=== PATIENT | male | born 1960 | race Caucasian/White ===

== ENCOUNTER 2017-08-14 00:19 | Inpatient (IN) | payer OTHER ==
[2017-08-14] MEDS ORDERED: ONDANSETRON 4 MG INJ IV (01:30)
[2017-08-14] MEDS ORDERED: BISACODYL (EC) 5 MG TAB PO (01:30)
[2017-08-14] MEDS ORDERED: DOCUSATE SODIUM 100 MG CAP PO (01:30)
[2017-08-14] MEDS ORDERED: NACL 0.9% 3 ML SYG IV (01:30)
[2017-08-14] MEDS ORDERED: ACETAMINOPHEN 325 MG TAB PO (01:30)
[2017-08-14 02:47] LABS: ADD MAN DIFF? NO
[2017-08-14 02:53] LABS: WHITE BLOOD COUNT 10.3 10^3/ul (4.8-10.8)
[2017-08-14 02:53] LABS: BASOPHIL # 0.1 10^3/ul (0.0-0.1); BASOPHILS % 0.7 % (0.0-2.0); EOSINOPHILS # 0.4 10^3/ul (0.0-0.5); EOSINOPHILS % 3.5 % (0.0-7.0); HEMATOCRIT 49.2 % (42.0-52.0); HEMOGLOBIN 15.3 g/dl (14.0-18.0); LYMPHOCYTES # 0.7 10^3/ul (0.8-2.9); LYMPHOCYTES % 6.5 % (15.0-51.0); MEAN CORPUSCULAR HEMOGLOBIN 29.4 pg (29.0-33.0); MEAN CORPUSCULAR HGB CONC 31.1 g/dl (32.0-37.0); MEAN CORPUSCULAR VOLUME 94.4 fl (82.0-101.0); MEAN PLATELET VOLUME 9.5 fl (7.4-10.4); MONOCYTE # 1.2 10^3/ul (0.3-0.9); MONOCYTES % 11.7 % (0.0-11.0); NEUTROPHIL # 7.9 10^3/ul (1.6-7.5); NEUTROPHILS % 76.5 % (39.0-77.0); PLATELET COUNT 285 10^3/UL (140-415); RED BLOOD COUNT 5.21 10^6/ul (4.70-6.10); RED CELL DISTRIBUTION WIDTH 14.6 % (11.5-14.5)
[2017-08-14] MEDS: VANCOMYCIN 1 GM (PMX) 250 ML IVPB (02:55)
[2017-08-14] MEDS: HYDROCODONE/APAP (5/325) TAB PO ×5 (02:56→23:32)
[2017-08-14 03:04] LABS: HEMOGLOBIN A1C 8.5 % (0-5.9)
[2017-08-14 03:22] LABS: LACTIC ACID 0.8 mmol/L (0.5-2.0)
[2017-08-14 03:23] LABS: ALANINE AMINOTRANSFERASE 31 IU/L (13-69); ALBUMIN 2.1 g/dl (3.3-4.9); ALBUMIN/GLOBULIN RATIO 0.77; ALKALINE PHOSPHATASE 262 IU/L (42-121); ANION GAP 9 (8-16); ASPARTATE AMINO TRANSFERASE 28 IU/L (15-46); BILIRUBIN,INDIRECT 0.3 mg/dl (0-1.1); BILIRUBIN,TOTAL 0.3 mg/dl (0.2-1.3); BLOOD UREA NITROGEN 23 mg/dl (7-20); CALCIUM 7.2 mg/dl (8.4-10.2); CARBON DIOXIDE 31 mmol/L (21-31); CHLORIDE 101 mmol/L (97-110); CHOL/HDL RATIO 5.5 RATIO; CHOLESTEROL 94 mg/dl (100-200); CREATININE 1.03 mg/dl (0.61-1.24); GLUCOSE 141 mg/dl (70-220); HDL CHOLESTEROL 17 mg/dl (30-78); LDL CHOLESTEROL,CALCULATED 52 mg/dl; MAGNESIUM 1.8 mg/dl (1.7-2.5); POTASSIUM 4.4 mmol/L (3.5-5.1); SODIUM 137 mmol/L (135-144); TOTAL PROTEIN 4.8 g/dl (6.1-8.1); TRIGLYCERIDES 123 mg/dl (0-149)
[2017-08-14 03:41] LABS: C-REACTIVE PROTEIN 8.8 mg/dl (0.0-0.9)
[2017-08-14] MEDS ORDERED: DEXTROSE 50% 50 ML SYRINGE IV ×2 (04:00)
[2017-08-14] MEDS ORDERED: GLUCAGON 1 MG INJ IM (04:00)
[2017-08-14] MEDS ORDERED: GLUCOSE GEL 15 GRAM TUBE PO ×2 (04:00)
[2017-08-14] MEDS ORDERED: GLUCOSE GEL 15 GRAM TUBE BUCCAL (04:00)
[2017-08-14 04:24] LABS: ERYTHROCYTE SEDIMENTATION RATE 32 mm/Hr (0-20)
[2017-08-14] MEDS ORDERED: VANCOMYCIN IV PER PHARMACY XX (06:30)
[2017-08-14] MEDS: PIPER-TAZO 3.375 GM IV (PMX) 100 ML IVPB ×3 (07:03→21:10)
[2017-08-14] MEDS: BUMETANIDE 1 MG INJ IV ×2 (07:03→17:34)
[2017-08-14 07:28] LABS: ADD MAN DIFF? NO
[2017-08-14 07:30] LABS: WHITE BLOOD COUNT 10.9 10^3/ul (4.8-10.8)
[2017-08-14 07:30] LABS: BASOPHIL # 0.1 10^3/ul (0.0-0.1); BASOPHILS % 0.5 % (0.0-2.0); EOSINOPHILS # 0.4 10^3/ul (0.0-0.5); EOSINOPHILS % 3.8 % (0.0-7.0); HEMATOCRIT 46.7 % (42.0-52.0); HEMOGLOBIN 14.9 g/dl (14.0-18.0); LYMPHOCYTES # 0.7 10^3/ul (0.8-2.9); LYMPHOCYTES % 6.2 % (15.0-51.0); MEAN CORPUSCULAR HEMOGLOBIN 29.8 pg (29.0-33.0); MEAN CORPUSCULAR HGB CONC 31.9 g/dl (32.0-37.0); MEAN CORPUSCULAR VOLUME 93.4 fl (82.0-101.0); MEAN PLATELET VOLUME 9.7 fl (7.4-10.4); MONOCYTE # 1.2 10^3/ul (0.3-0.9); MONOCYTES % 11.2 % (0.0-11.0); NEUTROPHIL # 8.4 10^3/ul (1.6-7.5); NEUTROPHILS % 77.2 % (39.0-77.0); PLATELET COUNT 274 10^3/UL (140-415)
[2017-08-14] MEDS: ASPIRIN 81 MG TAB PO (08:15)
[2017-08-14] MEDS: SPIRONOLACTONE 25 MG TAB PO (08:15)
[2017-08-14] MEDS: INSULIN ASPART [NOVOLOG] 3 ML PEN SC ×4 (08:16→21:15)
[2017-08-14] MEDS ORDERED: ENOXAPARIN 40 MG/0.4 ML SYG SC (09:00)
[2017-08-14 10:24] LABS: DIGOXIN 0.5 ng/ml (1.0-2.0)
[2017-08-14] MEDS: VANCOMYCIN 1.5 GM in SOD CHLORIDE 0.9% 250 ML IVPB ×2 (11:53→23:24)
[2017-08-14] MEDS: DIGOXIN 0.25 MG TAB PO (13:01)
[2017-08-14] MEDS: SOD CHLORIDE 0.9% 100 ML (15:44)
[2017-08-14] MEDS: IODIXANOL LOCM 100 ML BTL (15:44)
[2017-08-14] MEDS: RIVAROXABAN 20 MG TABLET PO (17:40)
[2017-08-15] MEDS: ACCU-CHEK XX (02:11)
[2017-08-15] MEDS ORDERED: PENDING SANTYL ORDER FOR WOUND CARE XX (05:00)
[2017-08-15] MEDS: BUMETANIDE 1 MG INJ IV ×2 (05:45→17:13)
[2017-08-15] MEDS: HYDROCODONE/APAP (5/325) TAB PO ×2 (05:45→15:07)
[2017-08-15] MEDS: PIPER-TAZO 3.375 GM IV (PMX) 100 ML IVPB ×3 (05:45→22:19)
[2017-08-15 06:55] LABS: ADD MAN DIFF? NO
[2017-08-15 07:00] LABS: BASOPHIL # 0.1 10^3/ul (0.0-0.1); BASOPHILS % 0.5 % (0.0-2.0); EOSINOPHILS # 0.4 10^3/ul (0.0-0.5); EOSINOPHILS % 3.4 % (0.0-7.0); HEMATOCRIT 47.8 % (42.0-52.0); LYMPHOCYTES # 0.8 10^3/ul (0.8-2.9); LYMPHOCYTES % 6.7 % (15.0-51.0); MEAN CORPUSCULAR HEMOGLOBIN 29.4 pg (29.0-33.0); MEAN CORPUSCULAR HGB CONC 31.4 g/dl (32.0-37.0); MEAN CORPUSCULAR VOLUME 93.5 fl (82.0-101.0); MEAN PLATELET VOLUME 9.5 fl (7.4-10.4); MONOCYTE # 1.2 10^3/ul (0.3-0.9); MONOCYTES % 9.9 % (0.0-11.0); NEUTROPHIL # 9.6 10^3/ul (1.6-7.5); NEUTROPHILS % 78.5 % (39.0-77.0); PLATELET COUNT 299 10^3/UL (140-415); RED BLOOD COUNT 5.11 10^6/ul (4.70-6.10); RED CELL DISTRIBUTION WIDTH 14.6 % (11.5-14.5)
[2017-08-15 07:00] LABS: WHITE BLOOD COUNT 12.3 10^3/ul (4.8-10.8)
[2017-08-15 07:25] LABS: CREATINE KINASE 40 IU/L (23-200)
[2017-08-15 07:27] LABS: ANION GAP 13 (8-16); BLOOD UREA NITROGEN 22 mg/dl (7-20); CALCIUM 6.9 mg/dl (8.4-10.2); CARBON DIOXIDE 29 mmol/L (21-31); CHLORIDE 98 mmol/L (97-110); CREATININE 0.81 mg/dl (0.61-1.24); GLUCOSE 155 mg/dl (70-220); POTASSIUM 4.6 mmol/L (3.5-5.1); SODIUM 135 mmol/L (135-144)
[2017-08-15 07:27] LABS: DIGOXIN 0.8 ng/ml (1.0-2.0)
[2017-08-15 07:35] LABS: B-TYPE NATRIURETIC PEPTIDE 1330 PG/ML (0-125); CHOL/HDL RATIO 5.8 RATIO; HDL CHOLESTEROL 17 mg/dl (30-78); LDL CHOLESTEROL,CALCULATED 54 mg/dl; TRIGLYCERIDES 142 mg/dl (0-149)
[2017-08-15 07:35] LABS: CHOLESTEROL 99 mg/dl (100-200)
[2017-08-15 07:37] LABS: CK INDEX 9.4
[2017-08-15 07:38] LABS: CK-MB 3.74 ng/ml (0.0-2.4)
[2017-08-15 07:40] LABS: TROPONIN-I 0.147 ng/ml (0.000-0.120)
[2017-08-15] MEDS: ASPIRIN 81 MG TAB PO (08:18)
[2017-08-15] MEDS: SPIRONOLACTONE 25 MG TAB PO (08:18)
[2017-08-15] MEDS: INSULIN ASPART [NOVOLOG] 3 ML PEN SC ×4 (08:27→20:17)
[2017-08-15] MEDS ORDERED: ENOXAPARIN 100 MG/ML SYG SC (09:00)
[2017-08-15] MEDS: VANCOMYCIN 1.5 GM in SOD CHLORIDE 0.9% 250 ML IVPB ×2 (12:11→23:56)
[2017-08-15] MEDS: DIGOXIN 0.25 MG TAB PO (12:13)
[2017-08-15] MEDS ORDERED: OXYCODONE/ACETAMINOPHEN (10/325) TAB PO (17:00)
[2017-08-15] MEDS: RIVAROXABAN 20 MG TABLET PO (17:13)
[2017-08-15] MEDS: OXYCODONE/ACETAMINOPHEN (5/325) TAB PO (20:11)
[2017-08-15] MEDS: MAGNESIUM OXIDE 400 MG TAB PO (20:11)
[2017-08-15 22:37] LABS: VANCOMYCIN,TROUGH 16.5 ug/ml (10.0-20.0)
[2017-08-16] MEDS: OXYCODONE/ACETAMINOPHEN (5/325) TAB PO ×3 (00:59→11:48)
[2017-08-16] MEDS: BUMETANIDE 1 MG INJ IV (05:36)
[2017-08-16] MEDS: PIPER-TAZO 3.375 GM IV (PMX) 100 ML IVPB (05:36)
[2017-08-16] MEDS: ASPIRIN 81 MG TAB PO (08:11)
[2017-08-16] MEDS: INSULIN ASPART [NOVOLOG] 3 ML PEN SC (08:11)
[2017-08-16] MEDS: SPIRONOLACTONE 25 MG TAB PO (08:12)
[2017-08-16 09:02] LABS: ADD MAN DIFF? NO
[2017-08-16 09:16] LABS: WHITE BLOOD COUNT 11.3 10^3/ul (4.8-10.8)
[2017-08-16 09:16] LABS: BASOPHIL # 0.1 10^3/ul (0.0-0.1); BASOPHILS % 0.5 % (0.0-2.0); EOSINOPHILS # 0.4 10^3/ul (0.0-0.5); EOSINOPHILS % 3.5 % (0.0-7.0); HEMATOCRIT 46.7 % (42.0-52.0); LYMPHOCYTES # 0.8 10^3/ul (0.8-2.9); LYMPHOCYTES % 7.4 % (15.0-51.0); MEAN CORPUSCULAR HEMOGLOBIN 29.8 pg (29.0-33.0); MEAN CORPUSCULAR HGB CONC 32.1 g/dl (32.0-37.0); MEAN CORPUSCULAR VOLUME 92.7 fl (82.0-101.0); MEAN PLATELET VOLUME 9.6 fl (7.4-10.4); MONOCYTE # 1.1 10^3/ul (0.3-0.9); MONOCYTES % 9.9 % (0.0-11.0); NEUTROPHIL # 8.8 10^3/ul (1.6-7.5); NEUTROPHILS % 77.8 % (39.0-77.0); PLATELET COUNT 339 10^3/UL (140-415); RED BLOOD COUNT 5.04 10^6/ul (4.70-6.10); RED CELL DISTRIBUTION WIDTH 14.6 % (11.5-14.5)
[2017-08-16 09:35] LABS: ANION GAP 12 (8-16); BLOOD UREA NITROGEN 18 mg/dl (7-20); CALCIUM 7.5 mg/dl (8.4-10.2); CARBON DIOXIDE 29 mmol/L (21-31); CHLORIDE 97 mmol/L (97-110); CREATININE 0.85 mg/dl (0.61-1.24); GLUCOSE 144 mg/dl (70-220); POTASSIUM 4.2 mmol/L (3.5-5.1); SODIUM 134 mmol/L (135-144)
[2017-08-16 09:50] LABS: MAGNESIUM 1.7 mg/dl (1.7-2.5)
[2017-08-16] MEDS: VANCOMYCIN 1 GM 250 ML IVPB (11:48)
== END 2017-08-16 12:38 | disposition left against medical advice (07) | DRG 291 ==
LOC: MS4 00:19
PROVIDERS: Internal Medicine
DX: I11.0 Hypertensive heart disease with heart failure (principal); J96.00 Acute respiratory failure, unspecified whether with hypoxia or hypercapnia; L03.115 Cellulitis of right lower limb; I47.2 Ventricular tachycardia; I50.41 Acute combined systolic (congestive) and diastolic (congestive) heart failure; I42.9 Cardiomyopathy, unspecified; I48.2 Chronic atrial fibrillation; K42.9 Umbilical hernia without obstruction or gangrene; I87.2 Venous insufficiency (chronic) (peripheral); E11.9 Type 2 diabetes mellitus without complications; Z86.73 Personal history of transient ischemic attack (TIA), and cerebral infarction without residual deficits; Z86.711 Personal history of pulmonary embolism; Z79.4 Long term (current) use of insulin; Z87.891 Personal history of nicotine dependence
CPT/HCPCS: 71045; 71275; 80048; 80053; 80061; 80162; 80202; 82550; 82553; 82962; 83036; 83605; 83735; 83880; 84443; 84484; 85025; 85651; 86140; 93005; 93306

== ENCOUNTER 2017-10-08 19:57 | Inpatient (IN) | payer OTHER ==
[2017-10-08] MEDS: morphine 2 MG INJ IV (21:55)
[2017-10-08] MEDS ORDERED: NACL 0.9% 3 ML SYG IV (22:00)
[2017-10-08] MEDS ORDERED: BISACODYL (EC) 5 MG TAB PO (22:00)
[2017-10-08] MEDS ORDERED: VANCOMYCIN IV PER PHARMACY XX (22:00)
[2017-10-08] MEDS ORDERED: ONDANSETRON 4 MG INJ IV (22:00)
[2017-10-08] MEDS ORDERED: DOCUSATE SODIUM 100 MG CAP PO (22:00)
[2017-10-08] MEDS: HYDROmorphONE 0.5 MG/0.5 ML SYG IV (23:13)
[2017-10-08] MEDS: VANCOMYCIN 1 GM 250 ML IVPB (23:13)
[2017-10-09] MEDS: ACETAMINOPHEN 325 MG TAB PO (02:15)
[2017-10-09] MEDS: HYDROmorphONE 0.5 MG/0.5 ML SYG IV ×5 (04:00→23:08)
[2017-10-09 06:05] LABS: ADD MAN DIFF? NO
[2017-10-09 06:11] LABS: BASOPHILS % 0.3 % (0.0-2.0); EOSINOPHILS # 0.3 10^3/ul (0.0-0.5); EOSINOPHILS % 1.8 % (0.0-7.0); HEMATOCRIT 49.7 % (42.0-52.0); HEMOGLOBIN 16.1 g/dl (14.0-18.0); LYMPHOCYTES % 6.9 % (15.0-51.0); MEAN CORPUSCULAR HEMOGLOBIN 28.6 pg (29.0-33.0); MEAN CORPUSCULAR HGB CONC 32.4 g/dl (32.0-37.0); MEAN CORPUSCULAR VOLUME 88.4 fl (82.0-101.0); MEAN PLATELET VOLUME 9.4 fl (7.4-10.4); MONOCYTE # 1.5 10^3/ul (0.3-0.9); NEUTROPHIL # 11.9 10^3/ul (1.6-7.5); NEUTROPHILS % 80.4 % (39.0-77.0); PLATELET COUNT 291 10^3/UL (140-415); RED BLOOD COUNT 5.62 10^6/ul (4.70-6.10); RED CELL DISTRIBUTION WIDTH 14.6 % (11.5-14.5)
[2017-10-09 06:11] LABS: WHITE BLOOD COUNT 14.8 10^3/ul (4.8-10.8)
[2017-10-09 06:44] LABS: ALANINE AMINOTRANSFERASE 15 IU/L (13-69); ALBUMIN 2.2 g/dl (3.3-4.9); ALBUMIN/GLOBULIN RATIO 0.78; ALKALINE PHOSPHATASE 128 IU/L (42-121); ANION GAP 10 (8-16); ASPARTATE AMINO TRANSFERASE 22 IU/L (15-46); BILIRUBIN,INDIRECT 0.4 mg/dl (0-1.1); BILIRUBIN,TOTAL 0.4 mg/dl (0.2-1.3); BLOOD UREA NITROGEN 33 mg/dl (7-20); CALCIUM 7.7 mg/dl (8.4-10.2); CARBON DIOXIDE 29 mmol/L (21-31); CHLORIDE 99 mmol/L (97-110); CREATININE 1.25 mg/dl (0.61-1.24); GLUCOSE 145 mg/dl (70-220); POTASSIUM 4.5 mmol/L (3.5-5.1); SODIUM 133 mmol/L (135-144)
[2017-10-09] MEDS: SOD CHLORIDE 0.9% 500 ML IV (09:34)
[2017-10-09] MEDS: VANCOMYCIN 1 GM 250 ML IVPB ×2 (11:09→23:08)
[2017-10-09] MEDS: PIPER-TAZO 3.375 GM IV (PMX) 100 ML IVPB ×2 (12:23→18:04)
[2017-10-09] MEDS: RIVAROXABAN 20 MG TABLET PO (17:35)
[2017-10-09] MEDS: SPIRONOLACTONE 50 MG TAB PO (20:24)
[2017-10-09] MEDS: ATENOLOL 25 MG TAB PO (20:24)
[2017-10-09] MEDS: HYDROCODONE/APAP (5/325) TAB PO (20:25)
[2017-10-09 22:52] LABS: VANCOMYCIN,TROUGH 12.5 ug/ml (10.0-20.0)
[2017-10-10] MEDS: PIPER-TAZO 3.375 GM IV (PMX) 100 ML IVPB ×4 (00:53→17:51)
[2017-10-10 05:08] LABS: ABNORMAL IP MESSAGE 1; ADD MAN DIFF? NO; BASOPHILS % 0.2 % (0.0-2.0); EOSINOPHILS # 0.3 10^3/ul (0.0-0.5); EOSINOPHILS % 1.9 % (0.0-7.0); HEMATOCRIT 47.8 % (42.0-52.0); HEMOGLOBIN 15.7 g/dl (14.0-18.0); LYMPHOCYTES # 0.9 10^3/ul (0.8-2.9); LYMPHOCYTES % 6.1 % (15.0-51.0); MEAN CORPUSCULAR HEMOGLOBIN 28.8 pg (29.0-33.0); MEAN CORPUSCULAR HGB CONC 32.8 g/dl (32.0-37.0); MEAN CORPUSCULAR VOLUME 87.5 fl (82.0-101.0); MEAN PLATELET VOLUME 9.3 fl (7.4-10.4); MONOCYTE # 1.6 10^3/ul (0.3-0.9); MONOCYTES % 11.1 % (0.0-11.0); NEUTROPHIL # 11.6 10^3/ul (1.6-7.5); NEUTROPHILS % 79.9 % (39.0-77.0); PLATELET COUNT 292 10^3/UL (140-415); POSITIVE DIFF @See below; RED BLOOD COUNT 5.46 10^6/ul (4.70-6.10)
[2017-10-10 05:08] LABS: WHITE BLOOD COUNT 14.6 10^3/ul (4.8-10.8)
[2017-10-10] MEDS: HYDROmorphONE 0.5 MG/0.5 ML SYG IV ×4 (05:33→19:58)
[2017-10-10 05:45] LABS: ANION GAP 10 (8-16); BLOOD UREA NITROGEN 28 mg/dl (7-20); CALCIUM 7.4 mg/dl (8.4-10.2); CARBON DIOXIDE 26 mmol/L (21-31); CHLORIDE 100 mmol/L (97-110); CREATININE 1.04 mg/dl (0.61-1.24); GLUCOSE 163 mg/dl (70-220); MAGNESIUM 1.7 mg/dl (1.7-2.5); PHOSPHORUS 3.7 mg/dl (2.5-4.9); POTASSIUM 4.2 mmol/L (3.5-5.1); SODIUM 132 mmol/L (135-144)
[2017-10-10] MEDS: ASPIRIN 81 MG TAB PO (08:39)
[2017-10-10] MEDS: ATENOLOL 25 MG TAB PO ×2 (08:39→20:00)
[2017-10-10] MEDS: BUMETANIDE 1 MG TAB PO ×2 (08:39→20:00)
[2017-10-10] MEDS: SPIRONOLACTONE 50 MG TAB PO ×2 (08:39→20:00)
[2017-10-10] MEDS ORDERED: NON-FORMULARY/PATIENT OWN MED (Bumetanide* 2 MG) PO (09:00)
[2017-10-10] MEDS: VANCOMYCIN 1 GM 250 ML IVPB ×2 (11:07→22:16)
[2017-10-10] MEDS: DIGOXIN 0.25 MG TAB PO (13:57)
[2017-10-10] MEDS: RIVAROXABAN 20 MG TABLET PO (17:51)
[2017-10-10] MEDS ORDERED: BUMETANIDE 1 MG TAB PO (18:30)
[2017-10-10] MEDS: HYDROCODONE/APAP (5/325) TAB PO (20:30)
[2017-10-11] MEDS: PIPER-TAZO 3.375 GM IV (PMX) 100 ML IVPB ×4 (00:10→18:11)
[2017-10-11] MEDS: HYDROmorphONE 0.5 MG/0.5 ML SYG IV ×6 (00:10→22:43)
[2017-10-11] MEDS: BUMETANIDE 1 MG TAB PO ×2 (05:45→17:17)
[2017-10-11] MEDS: SPIRONOLACTONE 50 MG TAB PO ×2 (08:20→21:43)
[2017-10-11] MEDS: ATENOLOL 25 MG TAB PO ×2 (08:20→21:43)
[2017-10-11] MEDS: ASPIRIN 81 MG TAB PO (08:20)
[2017-10-11] MEDS: VANCOMYCIN 1 GM 250 ML IVPB ×2 (10:43→22:43)
[2017-10-11 11:06] LABS: WHITE BLOOD COUNT 13.6 10^3/ul (4.8-10.8)
[2017-10-11 11:06] LABS: ADD MAN DIFF? NO; BASOPHIL # 0.1 10^3/ul (0.0-0.1); BASOPHILS % 0.4 % (0.0-2.0); EOSINOPHILS # 0.3 10^3/ul (0.0-0.5); EOSINOPHILS % 2.4 % (0.0-7.0); HEMATOCRIT 49.2 % (42.0-52.0); HEMOGLOBIN 15.8 g/dl (14.0-18.0); LYMPHOCYTES # 0.7 10^3/ul (0.8-2.9); MEAN CORPUSCULAR HEMOGLOBIN 28.7 pg (29.0-33.0); MEAN CORPUSCULAR HGB CONC 32.1 g/dl (32.0-37.0); MEAN CORPUSCULAR VOLUME 89.3 fl (82.0-101.0); MEAN PLATELET VOLUME 9.4 fl (7.4-10.4); MONOCYTE # 1.4 10^3/ul (0.3-0.9); MONOCYTES % 10.4 % (0.0-11.0); NEUTROPHILS % 80.9 % (39.0-77.0); PLATELET COUNT 273 10^3/UL (140-415); RED BLOOD COUNT 5.51 10^6/ul (4.70-6.10); RED CELL DISTRIBUTION WIDTH 14.9 % (11.5-14.5)
[2017-10-11 11:25] LABS: ALANINE AMINOTRANSFERASE 21 IU/L (13-69); ALBUMIN 2.5 g/dl (3.3-4.9); ALKALINE PHOSPHATASE 286 IU/L (42-121); ANION GAP 11 (8-16); ASPARTATE AMINO TRANSFERASE 47 IU/L (15-46); BILIRUBIN,INDIRECT 0.6 mg/dl (0-1.1); BILIRUBIN,TOTAL 0.6 mg/dl (0.2-1.3); BLOOD UREA NITROGEN 26 mg/dl (7-20); CALCIUM 7.6 mg/dl (8.4-10.2); CARBON DIOXIDE 24 mmol/L (21-31); CHLORIDE 98 mmol/L (97-110); CREATININE 1.04 mg/dl (0.61-1.24); GLUCOSE 212 mg/dl (70-220); POTASSIUM 4.8 mmol/L (3.5-5.1); SODIUM 128 mmol/L (135-144); TOTAL PROTEIN 5.6 g/dl (6.1-8.1)
[2017-10-11 11:27] LABS: PHOSPHORUS 3.7 mg/dl (2.5-4.9)
[2017-10-11 11:27] LABS: MAGNESIUM 1.7 mg/dl (1.7-2.5)
[2017-10-11 16:24] LABS: B-TYPE NATRIURETIC PEPTIDE 4350 PG/ML (0-125)
[2017-10-11] MEDS: HYDROCODONE/APAP (5/325) TAB PO (16:36)
[2017-10-11] MEDS: DIGOXIN 0.25 MG TAB PO (17:17)
[2017-10-11] MEDS: RIVAROXABAN 20 MG TABLET PO (18:12)
[2017-10-11 19:49] LABS: ADD UMIC YES; UR ASCORBIC ACID NEGATIVE (NEGATIVE); UR BILIRUBIN (Dip) NEGATIVE (NEGATIVE); UR BLOOD (Dip) 3+ mg/dL (NEGATIVE); UR CLARITY CLEAR (CLEAR); UR COLOR STRAW (YELLOW); UR GLUCOSE (Dip) NEGATIVE (NEGATIVE); UR KETONES (Dip) NEGATIVE (NEGATIVE); UR LEUKOCYTE ESTERASE (Dip) NEGATIVE Leu/ul (NEGATIVE); UR NITRITE (Dip) NEGATIVE (NEGATIVE); UR RBC 30 /HPF (0-5); UR SPECIFIC GRAVITY (Dip) 1.009 (1.003-1.030); UR TOTAL PROTEIN (Dip) NEGATIVE (NEGATIVE); UR UROBILINOGEN (Dip) NEGATIVE (NEGATIVE); UR WBC 2 /HPF (0-5)
[2017-10-11 19:54] LABS: CREATININE,URINE RANDOM 23.66 mg/dl (20-370); PROTEIN/CREAT RATIO 0.59 RATIO
[2017-10-12] MEDS: PIPER-TAZO 3.375 GM IV (PMX) 100 ML IVPB ×4 (00:39→18:15)
[2017-10-12] MEDS: HYDROmorphONE 0.5 MG/0.5 ML SYG IV ×5 (04:14→23:22)
[2017-10-12] MEDS: BUMETANIDE 1 MG TAB PO ×2 (05:48→18:15)
[2017-10-12] MEDS: HYDROCODONE/APAP (5/325) TAB PO ×4 (06:54→20:52)
[2017-10-12 07:16] LABS: ADD MAN DIFF? NO
[2017-10-12 07:21] LABS: BASOPHILS % 0.3 % (0.0-2.0); EOSINOPHILS # 0.4 10^3/ul (0.0-0.5); EOSINOPHILS % 2.4 % (0.0-7.0); HEMATOCRIT 46.9 % (42.0-52.0); HEMOGLOBIN 15.4 g/dl (14.0-18.0); LYMPHOCYTES # 0.8 10^3/ul (0.8-2.9); MEAN CORPUSCULAR HEMOGLOBIN 29.2 pg (29.0-33.0); MEAN CORPUSCULAR HGB CONC 32.8 g/dl (32.0-37.0); MEAN CORPUSCULAR VOLUME 88.8 fl (82.0-101.0); MEAN PLATELET VOLUME 9.5 fl (7.4-10.4); MONOCYTE # 1.5 10^3/ul (0.3-0.9); MONOCYTES % 9.7 % (0.0-11.0); NEUTROPHIL # 12.2 10^3/ul (1.6-7.5); NEUTROPHILS % 80.7 % (39.0-77.0); PLATELET COUNT 292 10^3/UL (140-415); RED BLOOD COUNT 5.28 10^6/ul (4.70-6.10); RED CELL DISTRIBUTION WIDTH 14.8 % (11.5-14.5)
[2017-10-12 07:21] LABS: WHITE BLOOD COUNT 15.2 10^3/ul (4.8-10.8)
[2017-10-12 07:43] LABS: ANION GAP 10 (8-16); BLOOD UREA NITROGEN 27 mg/dl (7-20); CALCIUM 7.9 mg/dl (8.4-10.2); CARBON DIOXIDE 26 mmol/L (21-31); CHLORIDE 98 mmol/L (97-110); CREATININE 1.06 mg/dl (0.61-1.24); GLUCOSE 169 mg/dl (70-220); POTASSIUM 4.2 mmol/L (3.5-5.1); SODIUM 130 mmol/L (135-144)
[2017-10-12] MEDS: SPIRONOLACTONE 50 MG TAB PO ×2 (08:39→20:52)
[2017-10-12] MEDS: ASPIRIN 81 MG TAB PO (08:39)
[2017-10-12] MEDS: ATENOLOL 25 MG TAB PO ×2 (08:40→20:52)
[2017-10-12] MEDS: VANCOMYCIN 1 GM 250 ML IVPB ×2 (12:28→23:21)
[2017-10-12 13:13] LABS: HEMOGLOBIN A1C 7.3 % (0-5.9)
[2017-10-12] MEDS: ACETAMINOPHEN 325 MG TAB PO (13:54)
[2017-10-12] MEDS: DIGOXIN 0.25 MG TAB PO (14:18)
[2017-10-12] MEDS: RIVAROXABAN 20 MG TABLET PO (18:15)
[2017-10-13] MEDS: PIPER-TAZO 3.375 GM IV (PMX) 100 ML IVPB ×5 (00:30→23:57)
[2017-10-13] MEDS: HYDROCODONE/APAP (5/325) TAB PO ×4 (03:01→17:57)
[2017-10-13] MEDS: BUMETANIDE 1 MG TAB PO ×2 (05:50→17:56)
[2017-10-13] MEDS: HYDROmorphONE 0.5 MG/0.5 ML SYG IV ×4 (05:51→20:35)
[2017-10-13 06:15] LABS: ADD MAN DIFF? NO
[2017-10-13 06:19] LABS: WHITE BLOOD COUNT 11.3 10^3/ul (4.8-10.8)
[2017-10-13 06:19] LABS: BASOPHIL # 0.1 10^3/ul (0.0-0.1); BASOPHILS % 0.5 % (0.0-2.0); EOSINOPHILS # 0.7 10^3/ul (0.0-0.5); EOSINOPHILS % 6.6 % (0.0-7.0); HEMATOCRIT 45.1 % (42.0-52.0); HEMOGLOBIN 14.7 g/dl (14.0-18.0); LYMPHOCYTES # 0.8 10^3/ul (0.8-2.9); LYMPHOCYTES % 6.8 % (15.0-51.0); MEAN CORPUSCULAR HEMOGLOBIN 28.7 pg (29.0-33.0); MEAN CORPUSCULAR HGB CONC 32.6 g/dl (32.0-37.0); MEAN CORPUSCULAR VOLUME 87.9 fl (82.0-101.0); MEAN PLATELET VOLUME 9.9 fl (7.4-10.4); MONOCYTE # 1.3 10^3/ul (0.3-0.9); MONOCYTES % 11.7 % (0.0-11.0); NEUTROPHIL # 8.2 10^3/ul (1.6-7.5); NEUTROPHILS % 72.8 % (39.0-77.0); PLATELET COUNT 328 10^3/UL (140-415); RED BLOOD COUNT 5.13 10^6/ul (4.70-6.10); RED CELL DISTRIBUTION WIDTH 14.9 % (11.5-14.5)
[2017-10-13 06:47] LABS: ANION GAP 11 (8-16); BLOOD UREA NITROGEN 32 mg/dl (7-20); CALCIUM 8.1 mg/dl (8.4-10.2); CARBON DIOXIDE 27 mmol/L (21-31); CHLORIDE 98 mmol/L (97-110); CREATININE 1.28 mg/dl (0.61-1.24); GLUCOSE 175 mg/dl (70-220); POTASSIUM 4.5 mmol/L (3.5-5.1); SODIUM 131 mmol/L (135-144)
[2017-10-13] MEDS: SPIRONOLACTONE 50 MG TAB PO (08:42)
[2017-10-13] MEDS: ATENOLOL 25 MG TAB PO ×2 (08:43→20:35)
[2017-10-13] MEDS: ASPIRIN 81 MG TAB PO (08:43)
[2017-10-13 11:11] LABS: VANCOMYCIN,TROUGH 16.9 ug/ml (10.0-20.0)
[2017-10-13] MEDS: VANCOMYCIN 1 GM 250 ML IVPB (12:59)
[2017-10-13] MEDS: LIDOCAINE 1% (MPF) 5 ML VIAL SC (13:00)
[2017-10-13] MEDS: DIGOXIN 0.25 MG TAB PO (15:29)
[2017-10-13] MEDS: RIVAROXABAN 20 MG TABLET PO (17:57)
[2017-10-14] MEDS: HYDROCODONE/APAP (5/325) TAB PO ×2 (01:45→12:20)
[2017-10-14] MEDS: VANCOMYCIN 750 MG in SOD CHLORIDE 0.9% 150 ML IVPB (02:51)
[2017-10-14] MEDS: PIPER-TAZO 3.375 GM IV (PMX) 100 ML IVPB ×2 (05:13→12:19)
[2017-10-14] MEDS: HYDROmorphONE 0.5 MG/0.5 ML SYG IV ×2 (05:14→10:03)
[2017-10-14 08:02] LABS: ADD MAN DIFF? NO
[2017-10-14 08:14] LABS: BASOPHIL # 0.1 10^3/ul (0.0-0.1); BASOPHILS % 0.6 % (0.0-2.0); EOSINOPHILS # 0.6 10^3/ul (0.0-0.5); EOSINOPHILS % 5.5 % (0.0-7.0); HEMATOCRIT 45.6 % (42.0-52.0); HEMOGLOBIN 14.7 g/dl (14.0-18.0); LYMPHOCYTES # 0.7 10^3/ul (0.8-2.9); LYMPHOCYTES % 5.9 % (15.0-51.0); MEAN CORPUSCULAR HEMOGLOBIN 28.7 pg (29.0-33.0); MEAN CORPUSCULAR HGB CONC 32.2 g/dl (32.0-37.0); MEAN CORPUSCULAR VOLUME 89.1 fl (82.0-101.0); MEAN PLATELET VOLUME 9.5 fl (7.4-10.4); MONOCYTE # 1.4 10^3/ul (0.3-0.9); MONOCYTES % 11.9 % (0.0-11.0); NEUTROPHIL # 8.5 10^3/ul (1.6-7.5); NEUTROPHILS % 73.7 % (39.0-77.0); PLATELET COUNT 363 10^3/UL (140-415); RED BLOOD COUNT 5.12 10^6/ul (4.70-6.10); RED CELL DISTRIBUTION WIDTH 14.8 % (11.5-14.5)
[2017-10-14 08:14] LABS: WHITE BLOOD COUNT 11.5 10^3/ul (4.8-10.8)
[2017-10-14 08:43] LABS: ANION GAP 9 (8-16); BLOOD UREA NITROGEN 31 mg/dl (7-20); CALCIUM 8.2 mg/dl (8.4-10.2); CARBON DIOXIDE 28 mmol/L (21-31); CHLORIDE 99 mmol/L (97-110); CREATININE 1.08 mg/dl (0.61-1.24); GLUCOSE 167 mg/dl (70-220); POTASSIUM 4.3 mmol/L (3.5-5.1); SODIUM 132 mmol/L (135-144)
[2017-10-14] MEDS: ATENOLOL 25 MG TAB PO (08:57)
[2017-10-14] MEDS: BUMETANIDE 1 MG TAB PO (08:57)
[2017-10-14] MEDS: SPIRONOLACTONE 50 MG TAB PO (08:57)
[2017-10-14] MEDS: ASPIRIN 81 MG TAB PO (08:57)
[2017-10-14] MEDS: DIGOXIN 0.25 MG TAB PO (15:04)
[2017-10-14] MEDS ORDERED: MUPIROCIN 2% 22 GM OINT TOP (21:00)
== END 2017-10-14 15:20 | disposition home or self-care (01) | DRG 603 ==
LOC: 2NE 19:57
DX: L03.116 Cellulitis of left lower limb (principal); E87.1 Hypo-osmolality and hyponatremia; I13.0 Hypertensive heart and chronic kidney disease with heart failure and stage 1 through stage 4 chronic kidney disease, or unspecified chronic kidney disease; I50.42 Chronic combined systolic (congestive) and diastolic (congestive) heart failure; I42.9 Cardiomyopathy, unspecified; E46 Unspecified protein-calorie malnutrition; N17.9 Acute kidney failure, unspecified; E11.22 Type 2 diabetes mellitus with diabetic chronic kidney disease; N18.9 Chronic kidney disease, unspecified; E66.9 Obesity, unspecified; K42.9 Umbilical hernia without obstruction or gangrene; I48.91 Unspecified atrial fibrillation; J44.9 Chronic obstructive pulmonary disease, unspecified; Z95.0 Presence of cardiac pacemaker; Z86.73 Personal history of transient ischemic attack (TIA), and cerebral infarction without residual deficits; Z79.01 Long term (current) use of anticoagulants; Z86.711 Personal history of pulmonary embolism; Z91.19 Patient's noncompliance with other medical treatment and regimen; Z76.5 Malingerer [conscious simulation]; Z68.33 Body mass index [BMI] 33.0-33.9, adult
CPT/HCPCS: 71045; 73562; 73700; 80048; 80053; 80202; 81001; 81003; 82570; 83036; 83735; 83880; 84100; 85025; 87040; 87081; 87086; 97110; 97161